=== PATIENT | male | born 1950 | race Caucasian/White ===

== ENCOUNTER 2022-09-03 19:04 | Emergency (ER) | payer OTHER, SELFPAY ==
[2022-09-03 19:12] VITALS: BP 176/88; PULSE 68; RESP 16; TEMP 37.2; O2SAT 96; BMI 40.6
[2022-09-03 21:41] VITALS: BP 172/89; PULSE 62; RESP 18; O2SAT 96
--- NOTE | 2022-09-03 23:58 | ED.WOUNDLAC ---
HPI - Wound/Laceration General Chief Complaint: Wound/Laceration Stated Complaint: fell/head lac above rt eye Time Seen by Provider: 09/03/22 23:43 Source: patient Mode of arrival: Family Vehicle History of Present Illness HPI narrative: Patient is a 72-year-old male without any past medical history presenting today after trip and fall. He reports that he was going up porch when he tripped landing on a wooden railing, cutting his right eye. No loss of consciousness no nausea or vomiting no neck pain no numbness tingling weakness blurry vision double vision. actually did a good job of pitting Steri-Strips on it but it was still oozing and came Related Data Allergies Allergy/AdvReac Type Severity Reaction Status Date / Time No Known Drug Allergies Allergy Verified 09/03/22 19:53 Review of Systems Review of Systems ROS Unobtainable: All systems reviewed & are unremarkable except as noted in HPI and below Exam Initial Vital Signs Initial Vital Signs: Vital Signs Temperature 98.9 F 09/03/22 19:12 Pulse Rate 68 09/03/22 19:12 Respiratory Rate 16 09/03/22 19:12 Blood Pressure 176/88 H 09/03/22 19:12 Pulse Oximetry 96 09/03/22 19:12 Oxygen Delivery Method Room Air 09/03/22 19:12 GENERAL: Well-appearing, well-nourished and in no acute distress. HEAD: Vertical laceration over right eyebrow, extraocular muscles are intact equally, right periorbital contusion CARDIOVASCULAR: peripheral pulses in tact, cap refill <2 sec RESPIRATORY: No respiratory distress, speaks in full sentences without difficulty EXTREMITIES: Normal range of motion, no clubbing or edema. Neurovascularly intact NEUROLOGICAL: Cranial nerves II through XII grossly intact. Normal gait and speech. SKIN: 6 cm laceration good skin approximation for most of it, periorbital contusion mild orbital swelling Procedures Laceration Repair Laceration 1: Side (If applicable): right Size (cm): 6 Description: linear Depth: simple, single layer Local Anesthetic: lidocaine 2% and with epi Amount of anesthesia used (mL): 3 Pre-repair: wound explored, irrigated extensively and deep structures intact Skin layer closed with: nylon Skin layer suture size: 4-0 Number of sutures: 4 Technique: simple, interrupted Course Vital Signs Vital signs: Vital Signs - 8 hr 09/03/22 21:41 09/04/22 00:02 Pulse Rate 62 66 Respiratory Rate 18 16 Blood Pressure 172/89 H 184/90 H Pulse Oximetry 96 96 Oxygen Delivery Method Room Air Room Air MDM - Wound/Laceration MDM Narrative Medical decision making narrative: Patient is a 72-year-old male without any past medical history not on any anticoagulation or antiplatelet medication. Presenting today with fall and laceration. actually did a good job with Steri-Strips however there is area inferiorly near the eyebrow and eye were is deeper. It is easily repaired with sutures. Not having any neuro are focal deficits at this time no high-risk for intracranial hemorrhage I think reasonable to skip head CT. Discussion about wound care with patient and . Discharge Plan Departure Patient Disposition: Home Clinical Impression: Face lacerations Instructions: DI for Laceration Repair Activity Restrictions/Additional Instructions: *You have been diagnosed with facial laceration *What to do: Keep area clean and dry with soap and water. Okay to shower. Apply antibiotic ointment 1 to 2 times a day. Have sutures removed in about 4-7 days with PCP or walk-in clinic. Expect eye to be swollen and bruised tomorrow. May apply ice 20 minutes at a time and remain upright this will help with swelling. *Continue to take medications as directed *Follow up with your primary care provider in 2-3 days or call [phone] *Return to ER if you should have nausea vomiting weakness redness increased pain or any new, worsening or concerning symptoms Stand Alone Forms: Patient Portal/API
[2022-09-04 00:02] VITALS: BP 184/90; PULSE 66; RESP 16; O2SAT 96
== END 2022-09-04 00:12 | disposition home or self-care (01) ==
PROVIDERS: Emergency Provider Emergency Medicine
DX: S01.111A Laceration without foreign body of right eyelid and periocular area, initial encounter (principal); W01.198A Fall on same level from slipping, tripping and stumbling with subsequent striking against other object, initial encounter
CPT/HCPCS: 12014; 99283